=== PATIENT | female | born 1975 | race Caucasian/White ===

== ENCOUNTER 2018-11-09 09:57 | Day surgery (SDC) | payer OTHER ==
[2018-11-08 12:34] VITALS: BMI 22.1
[2018-11-09] MEDS ORDERED: MIDAZOLAM HCL 2 MG/2 ML SINGLE DOSE VIAL ONE (12:46)
[2018-11-09] MEDS ORDERED: PROPOFOL 20 ML ONE ×2 (12:46→13:15)
[2018-11-09] MEDS ORDERED: LIDOCAINE HCL 1%, 10 MG/ML (20ML VIAL) ONE (12:51)
[2018-11-09] MEDS ORDERED: LIDOCAINE HCL 1%, 10 MG/ML (50 mL VIAL) IJ ONE (13:09)
[2018-11-09] MEDS ORDERED: ONDANSETRON 4 MG/2 ML VIAL IVPUSH PRN (14:01)
[2018-11-09] MEDS ORDERED: oxyCODONE HCL 5 MG TABLET PO PRN (14:01)
[2018-11-09] MEDS ORDERED: LACTATED RINGERS SOLUTION 1,000 ML IV SCH (14:15)
[2018-11-09 15:10] VITALS: TEMP 97.6
[2018-11-09 17:08] VITALS: BP 118/52; PULSE 70
--- NOTE | 2018-11-09 20:33 | OP ---
DATE OF OPERATION: 11/09/2018 PREOPERATIVE DIAGNOSIS: Left breast mass. POSTOPERATIVE DIAGNOSIS: Left breast mass. PROCEDURE: Excision of left breast mass. SURGEON: Chrissie Fierro MD ANESTHESIA: Local, IV sedation. ESTIMATED BLOOD LOSS: Minimal. COMPLICATIONS: None. This was a sterile procedure. INDICATION FOR PROCEDURE: Patient presented with a palpable mass in the left breast 8:30 to 9 o'clock location, 6 cm from the nipple. As this was bothering her and increasing in size, we discussed an excision. The procedure was discussed with her. All the questions answered. PROCEDURE IN DETAIL: Patient was brought to [facility] in [place], taken into the operating room, and after IV sedation, the left breast was prepped and draped in usual sterile fashion. The inner left breast was anesthetized with 1% lidocaine without epinephrine. An incision was made over the palpable mass, and this was excised en bloc, sent to Pathology in formalin for permanent section. Hemostasis was assured with electrocautery. The parenchyma was approximated with interrupted 2-0 Vicryl, skin approximated with 3-0 Vicryl and running 4-0 Biosyn. A sterile dressing with Tegaderm and 4 x 4 was applied. She tolerated the procedure well, was taken to Recovery in good condition. CHRISSIE FIERRO M.D. [id number]
--- NOTE | 2018-11-13 10:25 | PATH ---
Surgical Pathology Report Patient Name: PAUL SANTIAGO [facility] Rec. #: [id number] /Age/Gender: 1975 (Age: 43) / F Account: [id number] Location: [facility] Taken: 11/09/2018 Received: 11/12/2018 Reported: 11/13/2018 Physicians: Chrissie Patterson M.D. 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 Electronically Signed Fransico Hernandez M.D. Gross Description Received in formalin labeled "left breast excision of mass," is a 5.3 x 3.8 x 1.9 cm irregular, unoriented portion of fibroadipose tissue. There is no needle localization wire present. There is no skin or nipple present. The specimen is inked blue and serially sectioned. Sectioning reveals a 3.3 x 3.0 x 1.6 cm dumont, rubbery mass abutting the radial margin. No areas of hemorrhage or necrosis are identified. [employer] sections including the entire mass are sequentially submitted in 10 cassettes. Total formalin fixation time: Approximately 74 hours 11/12/201811/12/2018
== END 2018-11-09 17:09 | disposition home or self-care (01) ==
LOC: JASU-SURG 09:57
PROVIDERS: ATTEND Surgery
PROC: 0HBU0ZX Excision of Left Breast, Open Approach, Diagnostic (ICD-10-PCS; principal; 2018-11-09 11:00)
DX: D24.2 Benign neoplasm of left breast (principal); N60.12 Diffuse cystic mastopathy of left breast
CPT/HCPCS: 84703; 88307-TC; 94760